=== PATIENT | male | born 1990 | race Caucasian/White ===

== ENCOUNTER 2018-11-19 18:48 | Emergency (ER) | payer OTHER ==
[2018-11-19] MEDS ORDERED: ONDANSETRON HCL INJ/PF 4 MG/2 ML SDV IV ONE ×2 (19:28→21:35)
[2018-11-19] MEDS ORDERED: MORPHINE SULFATE 10 MG/ML INJ IV ONE ×2 (19:29→21:35)
--- NOTE | 2018-11-19 19:30 | ER Document Report ---
ED Medical Screen (RME) - General Chief Complaint: Abdominal Pain Stated Complaint: ABDOMINAL PAIN,NAUSEA Primary Care Provider: JASMIN GARCIA [Primary Care Provider] - Follow up as needed TRAVEL OUTSIDE OF THE [place] IN LAST 30 DAYS: No - HPI Notes: 11/19/18 19:29 Patient is a 28-year-old male who presents complaining of right lower quadrant abdominal pain that is described as moderate to severe that is been ongoing for the past 3 days with associated nausea and vomiting. He is also had some diarrhea. He is still urinating normally. Denies drug allergies. No surgical history to his abdomen. Denies CONNOR, fever, neck pain, URI, CP, SOB, dysuria, back pain, or rash. I have treated and performed a rapid initial assessment of this patient. A comprehensive ED assessment and evaluation of the patient, analysis of test results and completion of medical decision making process will be conducted by additional ED providers. PHYSICAL EXAMINATION: GENERAL: Well-appearing, well-nourished and in no acute distress. A&Ox4. Answers questions appropriately. LUNGS: Breath sounds clear to auscultation bilaterally and equal. No wheezes rales or rhonchi. HEART: Regular rate and rhythm without murmurs, rubs, gallops. ABDOMEN: Soft, nondistended abdomen. No guarding, no rebound. Normal bowel sounds present. No CVA tenderness bilaterally. + tenderness RLQ (cannot elicit thorough abd exam w/o bed, however). - Related Data Allergies/Adverse Reactions: No Known Allergies Allergy (Unverified 11/19/18 18:49) Past Medical History - Social History Frequency of alcohol use: None Drug Abuse: None Renal/ Medical History: Denies: Hx Peritoneal Dialysis Psychiatric Medical History: Reports: Hx Anxiety, Hx Post Traumatic Stress Disorder - diagnosed 11/10 Physical Exam - Vital signs Vitals: Temp Pulse Resp BP Pulse Ox 98.5 F 87 20 122/71 97 11/19/18 19:08 11/19/18 19:08 11/19/18 19:08 11/19/18 19:08 11/19/18 19:08 Course - Vital Signs Vital signs: Temp Pulse Resp BP Pulse Ox 98.5 F 87 20 122/71 97 11/19/18 19:08 11/19/18 19:08 11/19/18 19:08 11/19/18 19:08 11/19/18 19:08 Doctor's Discharge - Discharge Referrals: LOCALMD,NO [Primary Care Provider] - Follow up as needed
[2018-11-19 20:07] LABS: ABSOLUTE BASOPHILS # (AUTO) 0.1 10^3/uL (0.0-0.2); ABSOLUTE EOSINOPHILS # (AUTO) 0.2 10^3/uL (0.0-0.6); ABSOLUTE LYMPHOCYTES (AUTO) 2.3 10^3/uL (0.5-4.7); ABSOLUTE MONOCYTES (AUTO) 1.4 10^3/uL (0.1-1.4); ABSOLUTE NEUT (AUTO) 6.9 10^3/uL (1.7-8.2); BASOPHILS % (AUTO) 0.7 % (0-2); EOSINOPHILS % (AUTO) 1.4 % (0-6); HEMATOCRIT 42.7 % (37.9-51.0); HEMOGLOBIN 14.8 g/dL (13.5-17.0); LYMPHOCYTES % (AUTO) 21.5 % (13-45); MEAN CORPUSCULAR HEMOGLOBIN 30.1 pg (27.0-33.4); MEAN CORPUSCULAR HGB CONC 34.7 g/dL (32.0-36.0); MEAN CORPUSCULAR VOLUME 87 fl (80-97); MONOCYTES % (AUTO) 12.6 % (3-13); PLATELET COUNT 336 10^3/uL (150-450); RED BLOOD COUNT 4.93 10^6/uL (4.35-5.55); SEGMENTED NEUTROPHILS % (AUTO) 63.8 % (42-78); TOTAL CELLS COUNTED % (AUTO) 100 %; WHITE BLOOD COUNT 10.8 10^3/uL (4.0-10.5)
[2018-11-19 20:33] LABS: ALBUMIN 4.4 g/dL (3.5-5.0); ALKALINE PHOSPHATASE 91 U/L (38-126); ANION GAP 11 (5-19); ASPARTATE AMINO TRANSFERASE 38 U/L (17-59); BILIRUBIN,DIRECT 0.3 mg/dL (0.0-0.4); BILIRUBIN,TOTAL 0.4 mg/dL (0.2-1.3); BLOOD UREA NITROGEN 12 mg/dL (7-20); CALCIUM 9.6 mg/dL (8.4-10.2); CARBON DIOXIDE 32 mmol/L (22-30); CHLORIDE 95 mmol/L (98-107); GLUCOSE 99 mg/dL (75-110); POTASSIUM 4.2 mmol/L (3.6-5.0); TOTAL PROTEIN 7.6 g/dL (6.3-8.2)
[2018-11-19] MEDS ORDERED: NORMAL SALINE 1000 ML 1,000 ML IV ONE ×3 (21:23→23:52)
[2018-11-19] MEDS ORDERED: PIPERACILLIN/TAZOBACTAM 3.375 GM VIAL IV ONE (21:35)
[2018-11-19 21:46] LABS: CREATINE KINASE 29 U/L (55-170)
--- NOTE | 2018-11-19 22:14 | RADIOLOGY REPORT (SQ) ---
EXAM DESCRIPTION: CT ABDOMEN PELVIS WITH IV CONTRAST COMPLETED DATE/TME: 11/19/2018 19:28 CLINICAL HISTORY: 28 years, Male, RLQ tenderness COMPARISON: None. TECHNIQUE: 411 Images stored on PACS. All CT scanners at this facility use dose modulation, iterative reconstruction, and/or weight based dosing when appropriate to reduce radiation dose to as low as reasonably achievable (ALARA). [facility]: Dose Right [facility]: CareDose [facility]: Dose Right [facility]: Teradose 4D [facility]: [employer] LIMITATIONS: None. FINDINGS: Limited evaluation of the lung bases is unremarkable. Osseous structures are grossly intact. The liver, spleen, adrenal glands, pancreas, kidneys are unremarkable. The gallbladder is present. Normal appendix. However, there is marked abnormal thickening of a distal loop of ileum with poststenotic dilatation of the terminal ileum as it enters into the ileocecal valve. There is also severe wall thickening and surrounding inflammatory changes of the cecum and ascending colon with mild wall thickening of the hepatic flexure and proximal transverse colon. Findings are highly suspicious for inflammatory bowel disease. No free air or free fluid. Several, likely reactive adjacent mesenteric lymph nodes IMPRESSION: Abnormal bowel wall thickening of distal ileum, cecum, and descending colon as well as portions of the transverse colon. Surrounding inflammatory changes. Multiple reactive lymph nodes. Findings are highly suspicious for inflammatory bowel disease TECHNICAL DOCUMENTATION: Quality ID # [id number]: Final reports with documentation of one or more dose reduction techniques (e.g., Automated exposure control, adjustment of the mA and/or kV according to patient size, use of iterative reconstruction technique) copyright 2011 [employer]- All Rights Reserved
[2018-11-19] MEDS ORDERED: METHYLPREDNISOLONE INJ 125 MG/2 ML SDV IV ONE (22:23)
--- NOTE | 2018-11-19 22:24 | ER Document Report ---
Entered by SHIRAZ MARIO SCRIBE 11/19/18 [id number] Acting as scribe for:ELOY GORE MD ED GI/ - General Chief Complaint: Abdominal Pain Stated Complaint: ABDOMINAL PAIN,NAUSEA Time Seen by Provider: 11/19/18 21:10 Primary Care Provider: JASMIN GARCIA [NO LOCAL MD] - Follow up as needed Mode of Arrival: Ambulatory Information source: Patient Notes: 28-year-old male who presents to the emergency department today with complaints of right-sided abdominal pain with associated nausea and diarrhea for the last x3 days. Patient states all of these symptoms seem to begin suddenly and have been constant since onset. at bedside states the patient has had "extreme fevers" but goes on to say that she does not have a thermometer at home. Patient has had diaphoresis and chills as well. TRAVEL OUTSIDE OF THE [place] IN LAST 30 DAYS: No - Related Data Allergies/Adverse Reactions: No Known Allergies Allergy (Unverified 11/19/18 18:49) Past Medical History - General Information source: Patient - Social History Smoking Status: Never Smoker Cigarette use (# per day): No Frequency of alcohol use: None Drug Abuse: None Lives with: Family Family History: Reviewed & Not Pertinent Patient has suicidal ideation: No Patient has homicidal ideation: No Psychiatric Medical History: Reports: Hx Anxiety, Hx Post Traumatic Stress Disorder - diagnosed 11/10 Review of Systems - Review of Systems Constitutional: See HPI, Chills, Diaphoresis, Fever EENT: No symptoms reported Cardiovascular: No symptoms reported Respiratory: No symptoms reported Gastrointestinal: See HPI, Abdominal pain, Diarrhea, Nausea, Vomiting Genitourinary: No symptoms reported Male Genitourinary: No symptoms reported Musculoskeletal: No symptoms reported Skin: No symptoms reported Hematologic/Lymphatic: No symptoms reported Neurological/Psychological: No symptoms reported -: Yes All other systems reviewed and negative Physical Exam - Vital signs Vitals: Temp Pulse Resp BP Pulse Ox 98.5 F 87 20 122/71 97 11/19/18 19:08 11/19/18 19:08 11/19/18 19:08 11/19/18 19:08 11/19/18 19:08 - Notes Notes: Physical Exam: General: Alert, appears well. HEENT: Normocephalic. Atraumatic. PERRL. Extraocular movements intact. Oropharynx clear. Neck: Supple. Non-tender. Respiratory: No respiratory distress. Clear and equal breath sounds bilaterally. Cardiovascular: Regular rate and rhythm. Abdominal: Soft, exquisite right lower quadrant tenderness with palpation, some guarding. Hypoactive Bowel Sounds. Back: Non-tender. No deformity or step off. Extremities: Moves all four extremities. Upper extremities: Normal inspection. Normal ROM. Lower extremities: Normal inspection. No edema. Normal ROM. Neurological: Normal cognition. AAOx4. Normal speech. Psychological: Normal affect. Normal Mood. Skin: Warm. Dry. Normal color. Course - Vital Signs Vital signs: Temp Pulse Resp BP Pulse Ox 98.5 F 87 20 122/71 97 11/19/18 19:08 11/19/18 19:08 11/19/18 19:08 11/19/18 19:08 11/19/18 19:08 - Laboratory Result Diagrams: 11/19/18 19:57 11/19/18 19:57 Laboratory results interpreted by me: 11/19/18 11/19/18 11/19/18 19:51 19:57 19:57 WBC 10.8 H Chloride 95 L Carbon Dioxide 32 H Creatine Kinase 29 L Urine Protein 11/20/18 00:01 WBC Chloride Carbon Dioxide Creatine Kinase Urine Protein 30 H - Diagnostic Test Radiology reviewed: Image reviewed, Reports reviewed - CT scan of the abdomen pelvis with IV contrast shows abnormal bowel wall thickening of the distal ileum, cecum, and a sending colon as well as portions of the transverse colon. There is surrounding inflammatory changes. There are multiple reactive lymph nodes. Findings suspicious for inflammatory bowel disease. Normal appendix Discharge - Discharge Clinical Impression: Inflammatory bowel diseases (IBD), Right lower quadrant abdominal pain Condition: Stable Disposition: HOME, SELF-CARE Additional Instructions: Crohn's Disease Crohn's disease is an inflammatory disease of the intestines, affecting both the large and small intestine. The cause is unknown. Often there is vague abdominal pain and diarrhea for years before the diagnosis is made. The disease causes spotty thickening and inflammation of the bowel wall. With Crohn's disease, rectal fissures and abscesses are common. So is perforation of the bowel and internal abscess. The disease tends to flare spontaneously, then quiet down again. It never goes away completely. There is no cure for Crohn's disease. Acute flare-ups can be treated with steroids (such as prednisone), sometimes in combination with other medicines. Antibiotics (usually metronidazole) are often helpful. Sulfasalazine can ease the inflammation during flare-ups. Antidiarrhea medicine is taken as needed. Surgery may be needed for intestinal blockage, perforation, or hemorrhage. But surgery doesn't cure the disease -- it comes back in other places. Crohn's disease can cause immune disease in other body parts. Some patients will develop eye inflammation, arthritis, stiffened spine, liver inflammation, or skin disease. Kidney stones are more common in Crohn's patients. Lactose intolerance is common. There is a significant risk of developing a bowel tumor. Call the doctor if you have increasing abdominal pain, repeated vomiting, fever, rectal bleeding, or worsening diarrhea. Ulcerative Colitis Ulcerative colitis is an inflammatory disease of the large intestine. The inflammation affects the lining of the bowel. The cause is unknown. In most cases, the symptoms come and go. Sometimes spontaneous remissions can last for years. In mild ulcerative colitis, there may be more bowel movements than usual, but no other symptoms. In severe cases, there's severe diarrhea, blood in the stool, fever, anemia, and weight loss. The most dangerous complication of ulcerative colitis is "toxic megacolon." This occurs in severe flare-ups when the inflammation spreads through the entire bowel wall. Symptoms of this complication are a distended, very tender abdomen with fever, rapid heart rate, and a sense of being very ill. Ulcerative colitis can cause immune disease in other body parts. Some patients will develop eye inflammation, arthritis, stiffened spine, liver inflammation, or skin disease. There is no cure for ulcerative colitis. Acute flare-ups can be treated with steroids (such as prednisone). Sulfasalazine is often used to maintain remission. A low-lactose diet (or taking lactase supplements) is usually recommended. Stool bulking agents (like Metamucil) help some patients. Iron supplements are given to patients who develop anemia. Antidiarrhea medicine should be avoided by patients with ulcerative colitis. Call the doctor if you have increasing abdominal pain, repeated vomiting, fever, rectal bleeding, or worsening diarrhea. Your evaluation today is most consistent with an inflammatory bowel disease process. You will need a colonoscopy and biopsies to determine the precise diagnosis. Take medications as prescribed to help reduce the inflammation that is going on in your large intestine. Take Tylenol and ibuprofen for pain if needed. Follow-up with your primary care provider in the next 3 to 5 days to arrange for GI follow-up, and to decide how long to keep you on prednisone. RETURN TO THE EMERGENCY ROOM IF ANY NEW OR WORSENING SYMPTOMS. Prescriptions: Prednisone [Deltasone 20 mg Tablet] 20 mg PO ASDIR PRN #30 tablet PRN Reason: Referrals: [facility] [Provider Group] - Follow up in 3-5 days Scribe Attestation: 11/19/18 22:33 I personally performed the services described in the documentation, reviewed and edited the documentation which was dictated to the scribe in my presence, and it accurately records my words and actions. I personally performed the services described in the documentation, reviewed and edited the documentation which was dictated to the scribe in my presence, and it accurately records my words and actions.
[2018-11-20 00:25] LABS: APPEARANCE,URINE SLIGHTLY-CLOUDY; BILIRUBIN,URINE NEGATIVE (NEGATIVE); GLUCOSE, URINE NEGATIVE (NEGATIVE); KETONES,URINE NEGATIVE (NEGATIVE); LEUKOCYTE ESTERASE,URINE NEGATIVE (NEGATIVE); NITRITE,URINE NEGATIVE (NEGATIVE); PROTEIN,URINE 30 mg/dL (NEGATIVE); UROBILINOGEN,URINE NEGATIVE mg/dL (<2.0)
[2018-11-20 00:26] LABS: COLOR,URINE YELLOW
[2018-11-20] MEDS ORDERED: PREDNISONE 20 MG TABLET PO ONE (01:02)
[2018-11-20 01:25] VITALS: BP 154/84
== END 2018-11-20 01:17 | disposition home or self-care (01) ==
LOC: ER 18:48
DX: K58.0 Irritable bowel syndrome with diarrhea (principal); R10.31 Right lower quadrant pain; R10.813 Right lower quadrant abdominal tenderness; R50.9 Fever, unspecified; R11.2 Nausea with vomiting, unspecified
CPT/HCPCS: 36415; 82550; 83690; 85025; 80053; 81001; 74177; J2930; J2270; J7512; J2405; J7030 ×2; J2543